=== PATIENT | female | born 1980 | race Two or more races ===

== ENCOUNTER 2022-04-15 23:20 | Emergency (ER) | payer OTHER ==
[~2022-04-15] VITALS: Ht 160 cm; Wt 88.5 kg
[~2022-04-15 23:20] MED LIST: NAPROXEN500 MG PO
[2022-04-16] MEDS ORDERED: PYRIDIUM DS200 MG PO (04:00)
[2022-04-16] MEDS ORDERED: CEPHALEXIN500 MG PO (04:00)
== END 2022-04-16 04:14 ==
LOC: ER 23:20
DX: N39.0 Urinary tract infection, site not specified (principal); B96.89 Other specified bacterial agents as the cause of diseases classified elsewhere

== ENCOUNTER 2022-11-04 20:20 | Emergency (ER) | payer OTHER ==
[~2022-11-04] VITALS: Ht 160 cm; Wt 81.6 kg
[~2022-11-04 20:20] MED LIST changes: +CEPHALEXIN500 MG PO; +PYRIDIUM DS200 MG PO
== END 2022-11-05 02:48 | disposition home or self-care (01) ==
LOC: ER 20:20
DX: N93.8 Other specified abnormal uterine and vaginal bleeding (principal)

== ENCOUNTER 2024-05-09 17:04 | Emergency (ER) | payer OTHER ==
[~2024-05-09] VITALS: Ht 162.6 cm; Wt 90.7 kg
[~2024-05-09 17:04] MED LIST changes: +ACETAMINOPHEN500 M2 PO; +FUSION PLUS CA1 EACH PO; +MOLNUPIRAVIR (200 MG PO; +MUCINEX DM ER1 EAC1 PO; +ZYRTEC10 M3 PO
[2024-05-09] MEDS ORDERED: KETOROLAC TROMETHAMINE 30 MG VIAL IM STA (21:18)
[2024-05-09] MEDS ORDERED: KETOROLAC TROMETHAMINE 60 MG VIAL IM ONE (21:29)
[2024-05-09 21:51] LABS: HEMATOCRIT 33.4 % (36.0-45.00); HEMOGLOBIN 11.2 g/dL (12.0-15.00); MEAN CELL VOLUME 84.1 fL (80.00-100.00); MEAN CORPUSCULAR HEMOGLOBIN 28.2 pg (27.00-32.0); MEAN CORPUSCULAR HGB CONC 33.6 g/dl (32.0-36.0); PLATELET COUNT 285 K/uL (150-450); RED BLOOD COUNT 3.98 M/uL (4.00-6.00)
[2024-05-09 21:52] LABS: RED CELL DISTRIBUTION WIDTH 16.3 % (11.5-14.5)
== END 2024-05-09 22:45 | disposition home or self-care (01) ==
LOC: ER 17:06
PROVIDERS: General Practice
DX: R53.81 Other malaise (principal); J06.9 Acute upper respiratory infection, unspecified; Z20.822 Contact with and (suspected) exposure to COVID-19